=== PATIENT | female | born 1970 | race Caucasian/White ===

== ENCOUNTER → 2017-07-22 | Outpatient (CLI) | payer OTHER | LOC: LAB 10:02 | PROVIDERS: ATTEND Family Medicine | DX: M25.50 Pain in unspecified joint (principal); M25.40 Effusion, unspecified joint | CPT/HCPCS: 36415; 85651; 86038; 86140; 86430 ==

== ENCOUNTER → 2018-08-08 | Outpatient (CLI) | payer OTHER ==
[~2018-08-08] MED LIST: CARV12.578 PO; LOSA25TA57 PO; MEDR10TA57 PO; ONDA4TAB97 PO; THYR30TA21 PO
[2018-08-08 15:10] LABS: PLATELET COUNT, AUTOMATED 209 K/uL (150-450)
== END ==
LOC: LAB 14:08
PROVIDERS: ATTEND Student in an Organized Health Care Education/Training Program
DX: N93.9 Abnormal uterine and vaginal bleeding, unspecified (principal)
CPT/HCPCS: 36415; 82310; 82374; 82435; 82565; 82947; 84132; 84295; 84520; 85025

== ENCOUNTER → 2018-08-08 | Outpatient (CLI) | payer OTHER ==
[~2018-08-08] MED LIST changes: +DEXAMETHASONE SOD PHOS 10MG/ML ONE; +KETAMINE HCL 200 MG/20 ML MDV ONE; +LIDOCAINE MPF 1% 5 ML VIAL ONE; +ONDANSETRON 4 MG/2 ML VIAL ONE; +PROPOFOL EMUL(*) 10MG/ML 20 ML 60 ML ONE; +fentaNYL CITR 100 MCG/2 ML AMP ONE
--- NOTE | 2018-08-08 14:15 | RADIOLOGY IMAGING REPORT ---
FACILITY: [facility] PATIENT NAME: Monica Barakat : 1970 MR: [id number] V: [id number] EXAM DATE: ORDERING PHYSICIAN: PRISCILA MONTES TECHNOLOGIST: Location: [facility] [place] Patient: Monica Barakat : 1970 Visit/Account:[id number] Date of Sevice: 08/08/2018 TRANSVAGINAL NON-OB HISTORY: ABNORMAL UTERINE AND VAGINAL BLEEDING, UNSPECIFIED TECHNIQUE: Transvaginal ultrasound pelvis. COMPARISON: None. FINDINGS: Uterus: ; 8.1 cm length x 5.8 cm AP x 7 cm transverse. Myometrium: Unremarkable. Endometrium: The endometrium is extremely heterogeneous and thickened; double thickness 26.5 mm. Cervix: Nabothian cysts. Ovaries: Right - 4.2 x 3.2 x 3.9 cm. There is a 3.5 cm cyst with a tiny daughter cyst Left - 2.4 x 1.5 x 2.7 cm Blood flow is documented in each ovary by duplex Doppler ultrasound. Adnexa: Grossly unremarkable. Free pelvic fluid: Mild. IMPRESSION: The endometrium is extremely heterogeneous and thickened at 26.5 mm. This could be related to retain ed up blood clots although endometrial mass is included in the differential diagnosis 3.5 cm right ovarian cyst with a tiny daughter cyst Mild free pelvic fluid Report Dictated By: Liza Suarez MD at 08/08/2018 2:06 PM Report E-Signed By: Liza Suarez MD at 08/08/2018 2:10 PM WSN:[id number]
== END ==
LOC: US 12:54
PROVIDERS: ATTEND Student in an Organized Health Care Education/Training Program
DX: N83.201 Unspecified ovarian cyst, right side (principal)
CPT/HCPCS: 76830

== ENCOUNTER 2018-08-09 01:12 | Day surgery (SDC) | payer OTHER ==
[~2018-08-09] VITALS: Ht 170.2 cm; Wt 74.4 kg
[~2018-08-09 01:12] MED LIST changes: -DEXAMETHASONE SOD PHOS 10MG/ML ONE; -KETAMINE HCL 200 MG/20 ML MDV ONE; -LIDOCAINE MPF 1% 5 ML VIAL ONE; -ONDANSETRON 4 MG/2 ML VIAL ONE; -PROPOFOL EMUL(*) 10MG/ML 20 ML 60 ML ONE; -fentaNYL CITR 100 MCG/2 ML AMP ONE
[2018-08-09 08:44] VITALS: BP 109/53
[2018-08-09] MEDS ORDERED: MIDAZOLAM 2 MG/2 ML VIAL IVP PRN (08:55)
[2018-08-09] MEDS ORDERED: LIDOCAINE/SOD BICARB 8.4% SYR ID ONE (08:55)
[2018-08-09] MEDS ORDERED: FAMOTIDINE 20 MG TAB PO ONE (08:55)
[2018-08-09] MEDS ORDERED: ceFAZolin(*) 2GM/D5W 50ML 50 ML IVPB ONE (08:55)
[2018-08-09] MEDS ORDERED: NORMOSOL R SOLN(*) 1000 ML BAG 1,000 ML IV PRN (08:55)
--- NOTE | 2018-08-09 09:09 | NUR ---
HCG WAS CANCELLED PER DR. MONTES. SHE HAD A TRANSVAGINAL ULTRASOUNDS YESTERDAY
[2018-08-09] MEDS ORDERED: KETOROLAC 30 MG/ML VIAL ONE (10:33)
[2018-08-09] MEDS ORDERED: LR(*) 1000 ML BAG 1,000 ML IV ONE (10:49)
[2018-08-09] MEDS ORDERED: ONDANSETRON 4 MG/2 ML VIAL IVP PRN (10:50)
--- NOTE | 2018-08-09 11:01 | Post Operative Note ---
Operative Note - DATABASE DEVELOPER Operative Day Date: Aug 09, 2018 Time: 10:52 Physicians Surgeon: Priscila Jones Anesthesia: LMA, General Diagnosis Pre-Op Diagnosis: 47 y/o AUB Post-Op Diagnosis: same Procedure Findings: Uterus sound 9 cm. Fluffy endometrium with no masses or polyps noted. Cervix 1 cm. Procedure(s): Hysteroscopic D&C Specimen Removed:(Maybe N/A): Endometrial Curretting Complications: 0 known Fluids Fluids: 850 IV LR 4850 ml 0.9% NS used for hysteroscopy with 232 cc deficit u/o: minimal Estimated Blood Loss: 30 Dictated Date OP Note Dictated: Aug 09, 2018 Time OP Note Dictated: 11:01 PRISCILA JONES DO Aug 09, 2018 11:01
--- NOTE | 2018-08-09 11:04 | OB/GYN Discharge Summary ---
Discharge Summary Reason for Hosp/Final Diag: (1) Abnormal uterine bleeding (AUB) Hospital Course & Plan: Pt presented for a scheduled hysteroscopy d&c. Underwent procedure with out any difficulty. See operative notes for details of procedure. Pt was transferred to same day surgery and once meeting goals there she was discharged home. [place] Vital Signs Vital Signs Date Time Temp Pulse Resp B/P (MAP) Pulse Ox O2 Delivery O2 Flow Rate FiO2 08/09/18 08:44 98.0 94 16 109/53 (71) 94 Weight (Pounds): 164 Condition: Improved Discharge: Home Home Meds Active Scripts Ondansetron Hcl (ZOFRAN) 4 Mg Tablet, 1 TAB PO Q4-6H PRN for NAUSEA/VOMITING, #20 TAB 1 Refill Prov:PRICSILA MONTES DO 08/08/18 Medroxyprogesterone Acetate (PROVERA) 10 Mg Tablet, 20 MG PO DAILY, #21 TAB 1 Refill Prov:PRISCILA MONTES DO 08/08/18 Reported Medications Thyroid,Pork (ARMOUR THYROID) 30 Mg Tablet, 30 MG PO DAILY 08/08/18 Losartan Potassium (LOSARTAN POTASSIUM) 25 Mg Tablet, 25 MG PO QDAY 08/08/18 Carvedilol (CARVEDILOL) 12.5 Mg Tablet, 12.5 MG PO BID, #10 TAB 08/08/18 Discontinued Reported Medications [None] No Conflict Check 07/13/11 Follow up with: [facility] [place] [phone], Dr. Montes [phone] Follow up in: 2 wks PO Discharge Diet: As Tolerates Discharge Activity: As Tolerates, Pelvic Rest Special Instructions: PRISCILA MONTES DO Aug 09, 2018 11:04
[2018-08-09 11:25] VITALS: BP 108/67
--- NOTE | 2018-08-09 11:55 | OPERATIVE REPORT 1 ---
EVENT DATE: August 09, 2018 SURGEON: Singh Jones DO ANESTHESIOLOGIST: Nayan Woods MD ANESTHESIA: LMA with general. PREOPERATIVE DIAGNOSES 1. 47-year old, 2, para 2. 2. Abnormal uterine bleeding. POSTOPERATIVE DIAGNOSES 1. 47-year old, 2, para 2. 2. Abnormal uterine bleeding. PROCEDURE PERFORMED Hysteroscopic dilatation and curettage. FINDINGS Uterus sound to 9 cm on hysteroscope with a fluffy endometrium but no masses or polyps noted. Cervix was dilated to approximately 1 cm. ESTIMATED BLOOD LOSS 30 cc. IV FLUIDS 850 cc lactated ringers. There were 4,850 cc 0.9% NS used for hysteroscopy with 232 cc deficit. URINE OUTPUT Minimal. COMPLICATIONS None known. CONDITION Stable to recovery room. COUNTS Correct for all needles, laps, sponges and instruments. INDICATIONS AND CONSENT Patient is a 47-year old, 2 female who presented to the clinic as a referral from [facility] secondary to abnormal uterine bleeding. Patient had been bleeding since July 30, requiring a pad every 45 minutes. Patient was initially seen at [facility], where the provider did an endometrial biopsy but during the biopsy noted a significant amount of blood and was concerned about the possibility of an inadequate biopsy and she was referred to our clinic for further evaluation. After an ultrasound that showed no fibroids, just a thickened endometrial stripe, the patient was counseled on her options and she desired to proceed with D and C to get the pathology. The patient signed the appropriate consents. Risks, benefits and alternatives were given to the patient and she desired to proceed with hysteroscopic D and C. DESCRIPTION OF PROCEDURE The patient was taken to the operating room, where she was placed in the dorsal supine position. Once anesthesia was achieved, the patient was placed in the lithotomy position. She was then prepped and draped in the usual sterile manner. A sterile speculum was placed in the vagina. The cervix was grasped with a single-tooth tenaculum on the anterior aspect of the cervix. The cervix was noted to be approximately 1 cm dilated without any dilation performed with dilators. Uterine sound was easily passed through the cervix. It sounded to 9 cm. The hysteroscope was placed within the cervix. The endometrium was visualized. Multiple pictures were taken of a fluffy endometrium. No masses or polyps were noted within the endometrium. The MyoSure Lite device was then used to collect endometrial curettings throughout the entirety of the uterus. After the MyoSure device was used and noted that we had an adequate tissue sample, the patient then underwent two sharp curettings with uterine cry noted after the curettings. At this point, the hysteroscope procedure was finished. The patient was then cleaned. The speculum was removed from the cervix. The patient was awoken and transferred to the recovery room in stable condition. SILVANA
[2018-08-09 12:02] VITALS: BP 121/61
[2018-08-09 12:04] VITALS: BP 108/69
[2018-08-09] MEDS ORDERED: IBUPROFEN 800 MG TAB PO SCH (17:00)
== END 2018-08-09 11:25 | disposition home or self-care (01) ==
LOC: OR 01:12
PROVIDERS: ATTEND Student in an Organized Health Care Education/Training Program
DX: N39.3 Stress incontinence (female) (male) (principal)
CPT/HCPCS: 58558; J1100; J1885; J2001; J2250; J2405; J2704; J3010; J3490; J0690